=== PATIENT | male | born 1995 | race Caucasian/White ===

== ENCOUNTER 2019-11-16 13:53 | Emergency (ER) | payer OTHER ==
[~2019-11-16] VITALS: Ht 172.7 cm; Wt 55.3 kg
[2019-11-16 14:53] LABS: ABSOLUTE NEUTROPHILS 5.9 thou/uL (1.4-8.2); BASOPHILS 0.8 % (0.0-2.0); EOSINOPHILS 1.8 % (0.0-3.0); HEMATOCRIT 47.7 % (42.0-52.0); HEMOGLOBIN 16.3 gm/dL (14.0-18.0); LYMPHOCYTES 28.1 % (24.0-44.0); MCH 29.6 pg (26.0-34.0); MCHC 34.3 g/dL (28.0-37.0); MCV 86.4 fL (80.0-100.0); MONOCYTES 3.8 % (1.0-8.0); PLATELET COUNT 314 thou/uL (150-400); POLYS 65.5 % (36.0-66.0); RBC 5.52 mil/uL (4.50-6.00); RDW 11.9 % (10.5-14.5); WBC 8.9 thou/uL (4.0-11.0)
[2019-11-16 15:01] LABS: CALCIUM 10.2 mg/dL (8.5-10.1); CREATININE 0.9 mg/dL (0.7-1.3); POTASSIUM 3.9 mmol/L (3.5-5.1)
[2019-11-16 15:11] LABS: APTT 35.5 Seconds (24.5-32.8); D-DIMER 0.32 ug/mLFEU (0.19-0.50); INR 1.2; PROTIME 11.9 Seconds (9.3-11.4)
[2019-11-16 15:51] LABS: DIRECT BILIRUBIN 0.1 mg/dL (<0.1-0.2); TOTAL BILIRUBIN 0.6 mg/dL (<0.1-1.0); TOTAL PROTEIN 9.1 g/dL (6.4-8.2)
[2019-11-16 17:05] VITALS: BP 147/89
== END 2019-11-16 17:07 | disposition left against medical advice (07) ==
LOC: ER 13:53
PROVIDERS: Emergency Medicine
DX: R04.2 Hemoptysis (principal)